=== PATIENT | male | born 1940 | race Hispanic/Latino ===

== ENCOUNTER 2017-04-17 09:27 | Outpatient (CLI) | payer BC ==
[2017-04-17] MEDS ORDERED: Iopamidol 370 76% 100 ML VIAL ONE (13:16)
== END 2017-04-17 09:28 | disposition home or self-care (01) ==
LOC: BICCT 09:27
PROVIDERS: ATTEND Urology
DX: R31.9 Hematuria, unspecified (principal); N40.0 Benign prostatic hyperplasia without lower urinary tract symptoms; N32.3 Diverticulum of bladder; K57.90 Diverticulosis of intestine, part unspecified, without perforation or abscess without bleeding; K76.89 Other specified diseases of liver
CPT/HCPCS: 36415; 74178; 82565

== ENCOUNTER 2019-11-29 18:08 | Inpatient (IN) | payer MEDICARE, BC ==
[2019-11-29] MEDS ORDERED: Albuterol 200 PUFF (6.7GM INHALER) ONE (18:25)
[2019-11-29] MEDS ORDERED: Magnesium 2 GM/50 ML BAG (IN WATER) ONE (18:26)
[2019-11-29 18:28] LABS: Actual Bicarbonate (HCO3a) 21.1 mEq/L (22-28); Analyzer IN Cardio ER; CO2 Tension 35.1 mmHg (35.0-45.0); Calcium, Ionized (arterial) 1.17 mmol/L (1.12-1.30); Carboxyhemoglobin (COHb) 0.4 gm% (0.0-3.0); Hemoglobin (Hb) 14.6 g/dL (14.0-18.0); O2 Tension (PaO2), arterial 79.9 mmHg (> 70.0); Potassium - ABG Lab 3.83 mmol/L (3.70-5.30)
[2019-11-29] MEDS ORDERED: diphenhydrAMINE 50 MG/ML VIAL ONE (18:29)
[2019-11-29 18:33] LABS: Puncture Site RR
[2019-11-29 18:38] LABS: ALV-art Gradient 25.955 mmHg (0-20)
[2019-11-29 18:45] LABS: #Lymphocytes 0.6 thou/uL (1.20-3.40); #Monocytes 0.4 thou/uL (0.11-0.59); #Neutrophils 8.4 thou/uL (1.40-6.50); %Basophils 0.3 % (0.0-1.0); %Eosinophils 0.3 % (0.0-10.0); %Lymphocytes 6.6 % (21.0-51.0); %Monocytes 4.3 % (0.0-10.0); %Neutrophils 88.4 % (42.0-75.0); Hemoglobin 13.8 g/dL (14.0-18.0); Mean Corpuscular HGB CONC 34.1 g/dL (32.0-36.0); Mean Corpuscular Hemoglobin 30.7 pg (27.0-31.0); Mean Corpuscular Volume 90.2 fL (78.0-98.0); Mean Platelet Volume 6.5 fL (7.4-10.4); Platelet Count 167 thou/uL (130-400); RBC Distribution Width 12.5 % (11.5-14.5); Red Blood Cell (RBC) Count 4.49 mill/uL (4.70-6.10); White Blood Cell (WBC) Count 9.5 thou/uL (4.8-10.8)
--- NOTE | 2019-11-29 18:46 | RAD ---
Portable frontal chest radiograph: 11/29/2019 COMPARISON: 06/14/2019 HISTORY: Wheezing, shortness of breath FINDINGS: Mild increased linear interstitial density noted with pulmonary hyperinflation suggesting a ir trapping. Question a history of COPD. There is atherosclerotic calcification of the aortic arch. There is no pneumothorax or pleural fluid and no focal consolidation or alveolar edema. IMPRESSION: Interstitial prominence and pulmonary hyperinflation with no focal consolidation or alveo lar edema.
[2019-11-29 19:08] LABS: Albumin 4.3 g/dL (3.4-4.8)
[2019-11-29 19:09] LABS: Chloride 106 mmol/L (98-107); Potassium 3.6 mmol/L (3.5-5.1); Sodium 138 mmol/L (136-145)
[2019-11-29 19:11] LABS: Globulin 3.1 g/dL (2.4-3.5); Glucose 170 mg/dL (83-110); Protein, Total 7.4 g/dL (5.8-8.1)
[2019-11-29 19:12] LABS: Anion Gap 15 mmol/L (10-20); Bilirubin, Total 0.6 mg/dL (0.2-1.2); Carbon Dioxide 21 mmol/L (23-31)
[2019-11-29 19:13] LABS: Alkaline Phosphatase 80 U/L (40-110)
[2019-11-29 19:14] LABS: Calc. Creatinine Clearance 0 mL/min (70-130); Estimated GFR-MDRD 60
[2019-11-29 19:15] LABS: BUN (Urea Nitrogen) 23 mg/dL (8.4-25.7)
[2019-11-29 19:16] LABS: ALT (SGPT) 13 U/L (8-55); AST (SGOT) 21 U/L (5-34)
[2019-11-29 22:45] VITALS: BMI 27.3
[2019-11-29] MEDS ORDERED: Acetaminophen 325 MG TAB PO PRN (22:47)
[2019-11-29] MEDS ORDERED: Ondansetron PF 4 MG/2 ML Vial IVP PRN (22:47)
[2019-11-29] MEDS ORDERED: HYDROcodone/Acetaminophen 5/325 mg Tablet PO PRN ×2 (22:47)
[2019-11-29] MEDS ORDERED: Ondansetron ODT 4 MG TAB SL PRN (22:47)
[2019-11-29] MEDS ORDERED: Albuterol 200 PUFF (6.7GM INHALER) INH SCH (23:00)
[2019-11-29 23:25] LABS: Troponin I Less than 0.010 ng/mL (< 0.028)
[2019-11-29] MEDS ORDERED: hydrALAZINE 20 MG/ML VIAL SLOW IVP PRN (23:36)
[2019-11-29] MEDS ORDERED: Bacteriostatic Water 30 ML VIAL FS PRN (23:39)
[2019-11-29] MEDS ORDERED: methylPREDNISolone Sod Succ 40 MG VIAL IVP SCH (23:45)
--- NOTE | 2019-11-30 00:01 | HP ---
REASON FOR ADMISSION: Difficulty with breathing. HISTORY OF PRESENT ILLNESS: This is a 79-year-old male patient, who had left arm pain and took some ibuprofen, subsequently developed shortness of breath. Went to the urgent care, found to be wheezing. He was given a dose of Decadron and neb treatment without any improvement. His oxygenation was still low. EMS was called and he was transported to our emergency room. En route, he did receive 0.3 mg IV of epinephrine. The patient did improve. Currently, he is in the IMCU. Appears to be doing very well in no acute distress. The patient denies taking aspirin, although it was mentioned in the notes that he took aspirin. He had only took Advil. He is allergic to aspirin, does develop what sounded like anaphylaxis to it. PAST MEDICAL HISTORY: 1. High blood pressure. 2. Hypothyroidism. 3. Asthma. SOCIAL HISTORY: Does not smoke. Does not drink alcohol. FAMILY HISTORY: Reviewed found to be noncontributory. REVIEW OF SYSTEMS: All systems reviewed except the above mentioned, found to be negative. PHYSICAL EXAMINATION: GENERAL: Awake, alert, and oriented, does not appear in distress. VITAL SIGNS: His blood pressure is 130/71, heart rate of 78, and saturating 100% room air. HEENT: Head is nontraumatic and normocephalic. Pupils equal and reactive. Extraocular movements are intact. Nonicteric sclerae. Well injected conjunctivae. Oral mucosa normal. Nasal mucosa normal. NECK: Supple. No adenopathy. No murmur. Thyroid is not palpable. Trachea is midline. No supraclavicular lymphadenopathy. HEART: S1 and S2. Regular. No murmur. No gallops. No friction rubs. No displacement of PMI. LUNGS: Clear to auscultation bilaterally. No wheezes, rhonchi, or crackles. Bowel sounds are positive. Nontender abdomen. No visceromegaly. EXTREMITIES: No lower extremity edema. No cyanosis. NEURO: Cranial nerves 2 through 12 within normal limits. Normal motor function. Normal sensory function. Normal reflexes. LABORATORY DATA: Blood work shows a WBC of 9.5, hemoglobin of 13.8, and platelets of 167. D-dimer 0.71. ABG shows a pH of 7.4, pCO2 of 35.1, and bicarb of 21. Sodium 138, potassium 3.6, bicarb 21, BUN 23, and creatinine 1.7. Troponin less than 0.01. Chest x-ray shows interstitial prominence and pulmonary hyperinflation. No focal consolidation or alveolar edema. ASSESSMENT AND PLAN: This is a 79-year-old male patient, presenting after what sounded like an anaphylactic reaction to ibuprofen. He is already allergic to aspirin. Did receive Decadron and neb treatments, then had to receive epinephrine. He did have a substantial improvement and feels better already, but we want to admit him to monitor him for delayed anaphylaxis. The patient will be admitted to IM. We will start him on IV Solu-Medrol to prevent any delayed anaphylaxis. In regard of his hypothyroidism, we will continue levothyroxine. In regards of his asthma, continue with his inhalers. For his high blood pressure, we will have him on IV hydralazine on as-needed basis. We will hold angiotensin receptor blockers for now just as a precautionary measure. For deep venous thrombosis prophylaxis, he will be on sequential compression devices. Job ID: [id number]
[2019-11-30 01:16] LABS: Troponin I 0.017 ng/mL (< 0.028)
[2019-11-30 05:35] LABS: #Lymphocytes 0.6 thou/uL (1.20-3.40); #Neutrophils 5.3 thou/uL (1.40-6.50); %Eosinophils 0.1 % (0.0-10.0); %Lymphocytes 9.8 % (21.0-51.0); %Monocytes 0.5 % (0.0-10.0); %Neutrophils 89.6 % (42.0-75.0); Hemoglobin 13.6 g/dL (14.0-18.0); Mean Corpuscular HGB CONC 34.3 g/dL (32.0-36.0); Mean Corpuscular Hemoglobin 31.4 pg (27.0-31.0); Mean Corpuscular Volume 91.5 fL (78.0-98.0); Mean Platelet Volume 6.4 fL (7.4-10.4); Platelet Count 179 thou/uL (130-400); RBC Distribution Width 12.6 % (11.5-14.5); Red Blood Cell (RBC) Count 4.33 mill/uL (4.70-6.10); White Blood Cell (WBC) Count 5.9 thou/uL (4.8-10.8)
[2019-11-30 05:53] LABS: Anion Gap 12 mmol/L (10-20); BUN (Urea Nitrogen) 20 mg/dL (8.4-25.7); Calc. Creatinine Clearance 80 mL/min (70-130); Calcium 8.7 mg/dL (7.8-10.44); Carbon Dioxide 20 mmol/L (23-31); Chloride 108 mmol/L (98-107); Estimated GFR-MDRD 89; Glucose 161 mg/dL (83-110); Potassium 4.4 mmol/L (3.5-5.1); Sodium 136 mmol/L (136-145)
[2019-11-30] MEDS ORDERED: Levothyroxine Sodium 88 MCG TAB PO SCH (06:00)
[2019-11-30] MEDS ORDERED: Mometasone 100 MCG/Formoterol 5 MCG 120 PUFF INHALER INH SCH (06:30)
[2019-11-30] MEDS ORDERED: methylPREDNISolone Sod Succ/PF 125 MG/2 ML VIAL IVP SCH (09:00)
[2019-11-30] MEDS ORDERED: Dutasteride 0.5 MG CAP PO SCH (09:00)
[2019-11-30] MEDS ORDERED: Enoxaparin Sodium 40 MG/0.4 ML SYRINGE SC SCH (09:00)
[2019-11-30] MEDS ORDERED: methylPREDNISolone Sod Succ 40 MG VIAL IVP SCH ×2 (09:00)
[2019-11-30 11:30] VITALS: TEMP 98.8
--- NOTE | 2019-11-30 12:23 | CON ---
DATE OF CONSULTATION: HISTORY OF PRESENT ILLNESS: Drew Baumann is a 79-year-old gentleman, who has known history of aspirin allergy. He inadvertently took some aspirin yesterday for pain in the left arm. Two hours later on, he developed swelling in his arm, facial edema, throat swelling up, and some shortness of breath. Denied any wheezing or coughing. He says he has never had asthma and does not smoke. He was given Decadron 10, epinephrine 0.3, and transferred to [facility]. He is in the MICU this morning, he appears relatively stable. PAST MEDICAL HISTORY: Pertinent for hypertension and hypothyroidism. PREVIOUS SURGERIES: None recently. HOME MEDICATIONS: Include; 1. . 2. Reglan 10. 3. Losartan 25. 4. Synthroid 88. 5. Breo one puff a day. 6. Plavix 75. 7. Dutasteride 0.5 a day. He is now started on Solu-Medrol and Dulera. REVIEW OF SYSTEMS: Ten-point negative. PHYSICAL EXAMINATION: VITAL SIGNS: Saturations are 100% on room air, temperature 98, blood pressure 124/75, pulse . CHEST: No wheezing. No crackles. CARDIAC: Normal S1 and S2. No gallops. ABDOMEN: No masses. DIAGNOSTIC STUDIES: His x-ray was clear. White count 9000. Lytes are normal. PO2 was 79, pCO2 of 35, pH 7.40, on room air. Renal function normal. ASSESSMENT: 1. 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 2. History of hypothyroidism. 3. History of hypertension. Pulmonary balck, restart home medication. Switch him over to oral prednisone. Can probably be discharged home in the next 24 to 48 hours if he remains stable. Consultation note 70 minutes, 50% direct patient care. Job ID: [id number]
--- NOTE | 2019-11-30 20:40 | DIS ---
DATE OF ADMISSION: 11/29/2019 DATE OF DISCHARGE: 11/30/2019 DISCHARGE DIAGNOSES: Anaphylaxis secondary to ibuprofen. CONSULTATIONS: Pulmonary, Dr. Antoine Johnson. PROCEDURES: None. BRIEF HISTORY OF PRESENT ILLNESS: This is a 79-year-old male with no past medical history except for hypertension who presented to the emergency room after he experienced swelling in his arm, facial swelling, and shortness of breath. The patient states that he had some left arm pain. He has an allergy to aspirin, so took ibuprofen. 3 hours later he started developing difficulty breathing, itching, and felt extremely sick. He called the ambulance and was given a dose of Decadron and nebulizer without any improvement. His oxygenation was still low and he came to the emergency room where he received 0.3 mg of IV epinephrine. The patient was admitted to the [facility] for further workup. HOSPITAL COURSE: Anaphylaxis: The patient was started on IV steroids with significant improvement. His troponins were negative x3. His chest x-ray showed mild interstitial prominence with no edema. The patient was ambulating well at the time of discharge. He states that he takes losartan chronically for hypertension and he did not seem to have any angioedema, therefore, anaphylaxis is less likely secondary to this. The patient was discharged with prednisone for 4 days after consultation with Pulmonary. The patient was advised to discontinue ibuprofen. He should follow up with his PCP in a week. He did meet inpatient criteria and improved faster than anticpated DISCHARGE PHYSICAL EXAMINATION: VITAL SIGNS: Temperature 98.8, heart rate 71, respiratory rate 19, O2 saturation 100% on room air, blood pressure 122/74. GENERAL: The patient is alert, awake, and oriented x3. CVS: Regular rate and rhythm with no murmur, rubs, or gallops. LUNGS: Clear to auscultation bilaterally. ABDOMEN: Positive bowel sounds, soft, nontender, nondistended. EXTREMITIES: No edema. PERTINENT LABORATORY DATA: CBC 11/29: White count 5.9, hemoglobin 13.6, hematocrit 39.7, platelet count 129. BMP 11/29: Unremarkable except for chloride of 108, bicarb of 20. Troponin I: Normal x3. LFTs 11/28: Normal. ABG 11/28: Shows pH of 7.4, pCO2 of 35, pO2 of 79.9. IMAGING: Chest x-ray 11/28: Shows interstitial prominence and pulmonary hyperinflation with no edema. DISCHARGE CONDITION: Stable. ACTIVITY: As tolerated. DIET: Heart healthy diet. DISCHARGE INSTRUCTIONS: The patient should follow up with his PCP in a week. Job ID: [id number] [id number]
[2019-11-30] MEDS ORDERED: Terazosin HCl 5 MG CAP PO SCH (21:00)
[2019-11-30] MEDS ORDERED: Clopidogrel Bisulfate 75 MG TAB PO SCH (21:00)
== END 2019-11-30 13:52 | disposition home or self-care (01) | DRG 916 ==
LOC: ERS 18:08 → IMCU/EMU 21:10
PROVIDERS: ADMIT Internal Medicine; ATTEND Internal Medicine
DX: T88.6XXA Anaphylactic reaction due to adverse effect of correct drug or medicament properly administered, initial encounter (principal); T39.315A Adverse effect of propionic acid derivatives, initial encounter; Y92.9 Unspecified place or not applicable; E03.9 Hypothyroidism, unspecified; I10 Essential (primary) hypertension; J45.909 Unspecified asthma, uncomplicated; Z88.6 Allergy status to analgesic agent
CPT/HCPCS: 36415; 71045; 80048; 80053; 82805; 83880; 84443; 84484; 85025; 85379; 93005; 96365; 96375; J1200; J1650; J2920; J3475

== ENCOUNTER 2020-08-21 11:39 | Outpatient (CLI) | payer MEDICARE, BC ==
[2020-08-21 14:27] LABS: Bilirubin Neg (Negative); Blood, Urine 10 (Negative); Clarity Clear (Clear); Glucose, Urine (Dipstick) Normal (Negative); Ketone, Urine Negative (Negative); Leukocyte Negative (Negative); Nitrite Negative (Negative); Protein, Urine (Dipstick) Negative (Neg-Trace); Specific Gravity, Urine 1.005 (1.002-1.036); Urobilinogen Normal mg/dL (Less than 2)
[2020-08-21 14:29] LABS: Hemoglobin 14.9 g/dL (13.5-17.5); Mean Corpuscular HGB CONC 34.7 g/dL (32.0-36.0); Mean Corpuscular Hemoglobin 30.3 pg (27.0-33.0); Mean Corpuscular Volume 87.6 fl (81.2-95.1); Platelet Count 190 10x3/uL (150-450); RBC Distribution Width 13.5 % (11.5-14.5); Red Blood Cell (RBC) Count 4.91 10x6/uL (4.32-5.72); White Blood Cell (WBC) Count 6.7 10x3/uL (3.5-10.5)
[2020-08-21 15:09] LABS: INR-International Normal Ratio 1.1; PTT 28.1 sec (22.0-33.0); Prothrombin Time 11.7 sec (9.5-12.1)
[2020-08-21 15:10] LABS: Anion Gap 15 mmol/L (10-20); BUN (Urea Nitrogen) 14 mg/dL (8.4-25.7); Calc. Creatinine Clearance 0 mL/min (70-130); Calcium 9.4 mg/dL (7.8-10.44); Carbon Dioxide 24 mmol/L (23-31); Chloride 105 mmol/L (98-107); Glucose 97 mg/dL (83-110); Potassium 4.2 mmol/L (3.5-5.1); Sodium 140 mmol/L (136-145)
[2020-08-21 15:22] LABS: RBC/HPF 0-3 HPF (0-3)
[2020-08-21 15:24] LABS: Bacteria/HPF Rare-Few HPF (None Seen); Squamous Epithelial 0-3 HPF (0-3); WBC/HPF 0-3 HPF (0-3)
== END 2020-08-21 11:40 | disposition home or self-care (01) ==
LOC: LABBT 11:39
PROVIDERS: ATTEND Urology
DX: Z01.818 Encounter for other preprocedural examination (principal); N40.1 Benign prostatic hyperplasia with lower urinary tract symptoms; R97.20 Elevated prostate specific antigen [PSA]; R55 Syncope and collapse
CPT/HCPCS: 80048; 81001; 85027; 85610; 85730; 87086; 93005; 93010

== ENCOUNTER 2020-08-24 06:15 | Day surgery (SDC) | payer MEDICARE ==
[2020-08-23 11:52] VITALS: BMI 27.1
[2020-08-24] MEDS ORDERED: B & O ONE (08:02)
[2020-08-24] MEDS ORDERED: Fentanyl 100 MCG/2 ML VIAL ONE (08:16)
[2020-08-24] MEDS ORDERED: Levofloxacin 500 mg/D5W 100 ml Premix Bag ONE (08:22)
[2020-08-24] MEDS ORDERED: PROPOFOL 200 MG/20 ML VIAL ONE (08:30)
[2020-08-24] MEDS ORDERED: Lidocaine 1% PF 5 ML VIAL ONE (08:30)
== END 2020-08-24 12:28 | disposition home or self-care (01) ==
LOC: SDC 06:15
PROVIDERS: ATTEND Urology
PROC: 0T7D8DZ Dilation of Urethra with Intraluminal Device, Via Natural or Artificial Opening Endoscopic (ICD-10-PCS; principal; 2020-08-24)
DX: N40.1 Benign prostatic hyperplasia with lower urinary tract symptoms (principal); N13.8 Other obstructive and reflux uropathy; R35.0 Frequency of micturition; R39.11 Hesitancy of micturition; R35.1 Nocturia; R39.12 Poor urinary stream; R55 Syncope and collapse; Z79.899 Other long term (current) drug therapy; Z88.6 Allergy status to analgesic agent
CPT/HCPCS: C9740; L8699; J1956; J2704; J3010

== ENCOUNTER 2021-12-11 14:33 | Outpatient (CLI) | payer MEDICARE, OTHER | END 2021-12-11 14:34 | disposition home or self-care (01) | LOC: RAD 14:33 | PROVIDERS: ATTEND Internal Medicine Critical Care Medicine | DX: R06.00 Dyspnea, unspecified (principal) | CPT/HCPCS: 71046 ==